=== PATIENT | female | born 2000 | race Caucasian/White ===

== ENCOUNTER → 2023-08-16 14:20 | Outpatient (BNVA) | payer OTHER, SELFPAY | PROVIDERS: Family Provider Family Medicine; Visit Provider Nurse Practitioner Women's Health | DX: Z12.4 Encounter for screening for malignant neoplasm of cervix (principal) | CPT/HCPCS: 88175 ==

== ENCOUNTER → 2023-11-07 08:30 | Outpatient (BNVA) | payer OTHER, SELFPAY | PROVIDERS: Family Provider Family Medicine; Visit Provider Nurse Practitioner Women's Health | DX: N92.6 Irregular menstruation, unspecified (principal) | CPT/HCPCS: 81025 ==

== ENCOUNTER → 2023-11-21 15:45 | Outpatient (BNVA) | payer OTHER, SELFPAY | PROVIDERS: Family Provider Family Medicine; Visit Provider Nurse Practitioner Women's Health | DX: O26.891 Other specified pregnancy related conditions, first trimester (principal); Z3A.08 8 weeks gestation of pregnancy | CPT/HCPCS: 76801 ==

== ENCOUNTER → 2023-12-07 15:00 | Outpatient (BNVA) | payer OTHER, SELFPAY | PROVIDERS: Family Provider Family Medicine; Visit Provider Nurse Practitioner Women's Health | DX: O26.91 Pregnancy related conditions, unspecified, first trimester (principal); Z34.01 Encounter for supervision of normal first pregnancy, first trimester | CPT/HCPCS: 80307; 84315; 85025; 86592; 86762; 86803; 86850; 86900; 87086; 87340; 87806 ==

== ENCOUNTER → 2024-01-02 13:20 | Outpatient (BNVA) | payer OTHER, SELFPAY | PROVIDERS: Family Provider Family Medicine; Visit Provider Obstetrics & Gynecology | DX: Z34.01 Encounter for supervision of normal first pregnancy, first trimester (principal) | CPT/HCPCS: 84315; 87491; 87591 ==

== ENCOUNTER → 2024-01-18 14:24 | Outpatient (BNVA) | payer OTHER, SELFPAY | PROVIDERS: Family Provider Family Medicine; Visit Provider Nurse Practitioner Women's Health | DX: O26.891 Other specified pregnancy related conditions, first trimester (principal); Z3A.08 8 weeks gestation of pregnancy; Z67.91 Unspecified blood type, Rh negative | CPT/HCPCS: 82105; 84315 ==

== ENCOUNTER 2024-01-20 20:48 | Emergency (ER) | payer OTHER, SELFPAY ==
[2024-01-20 20:52] VITALS: BP 109/72; PULSE 107; RESP 18; TEMP 37.1; O2SAT 100; BMI 24.1
[2024-01-20 21:49] LABS: Basophils % 0.2 %; Eosinophils # 0.1 10^3/uL (0.0-0.8); Eosinophils % 0.7 %; Hematocrit 39.6 % (36-47); Lymphocytes # 0.8 10^3/uL (0.8-4.8); Lymphocytes % 4.5 %; Mean Corpuscular HGB Conc 34.8 g/dL (30-55); Mean Corpuscular Hemoglobin 34.3 pg (27-33); Mean Corpuscular Volume 98.5 fl (85-98); Mean Platelet Volume 9.7 fL (7.4-10.4); Monocytes # 0.8 10^3/uL (0.2-0.9); Monocytes % 4.8 %; Neutrophils # 15.49 10^3/uL (1.8-7.7); Neutrophils % 89.2 %; Nucleated Red Blood Cells % 0 %; Platelet Count 258 10^3/cmm (157-399); Red Blood Count 4.02 10^6/uL (3.85-5.65); Red Cell Distribution Width 12.9 % (12.1-15.1); White Blood Count 17.38 10^3/uL (3.29-11.43)
[2024-01-20 21:59] LABS: Alanine Aminotransferase 8 U/L (0-33); Albumin Level 4.4 g/dL (3.5-5.2); Alkaline Phosphatase 59 U/L (35-105); Anion Gap 15.9 (5-19); Aspartate Amino Transferase 15 U/L (0-32); Blood Urea Nitrogen 8 mg/dL (6-20); Calcium 8.9 mg/dL (8.5-10.5); Carbon Dioxide 21 mmol/L (22-29); Chloride 102 mmol/L (98-107); Creatinine Clr Calc Pharmacy 164.2971; Globulin 2.7 g/dL (1.3-4.6); Glomerular Filtration Rate 150.3 mL/min (90-130); Glucose 115 mg/dL (65-115); Lipase 15 U/L (13-60); Osmolality Calculated 279 mOsm/kg (285-295); Potassium 3.9 mmol/L (3.5-5.1); Sodium 135 mmol/L (136-145); Total Bilirubin 0.6 mg/dL (0.15-1.2); Total Protein 7.1 g/dL (6.6-8.7)
[2024-01-20] MEDS: diphenhydrAMINE 50 mg/mL SDV 1mL IVP (22:10)
[2024-01-20] MEDS: metoclopramide 5 mg/mL SDV 2 mL 10 MG IVP (22:11)
[2024-01-20] MEDS: lactated ringers 1,000 ML 999 ML IV ×2 (22:11→23:14)
[2024-01-20 22:32] VITALS: BP 113/72; PULSE 75; RESP 16; O2SAT 100
--- NOTE | 2024-01-20 22:56 | ED_ITS ---
HPI - Nausea/Vomiting/Diarrhea 2 General: Chief complaint: Nausea/Vomiting/Diarrhea Stated complaint: siclick vomiting syndrome 16 wks preg Time Seen by Provider: 01/20/24 21:41 History of Present Illness: 23-year-old female who is 17 weeks pregn ant. She states that she had a history of cyclic vomiting syndrome as an adolescent, and her last episode was around 5 or 6 years ago. She presents with multiple episodes of vomiting today. She states that she had some diarrhea following eating [place] food last night, but that the vomiting started later, and has persisted through the day. She is having some generalized upper belly cramping. No vaginal bleeding or loss of fluid. Related Data Home Medications Medication Instructions Recorded Confirmed ascorbic acid (vitamin C) 1,000 mg 1 g PO Q6H 08/16/23 01/18/24 capsule docosahexaenoic acid 200 mg 200 mg PO DAILY 08/16/23 01/18/24 capsule ( DHA) ferrous sulfate 324 mg (65 mg 324 mg PO DAILY 08/16/23 01/18/24 iron) tablet,delayed release doxylamine succinate 25 mg tablet 25 mg PO Q6H PRN 12/07/23 01/18/24 (Unisom (doxylamine)) famotidine 20 mg tablet (Pepcid) 20 mg PO BID 12/07/23 01/18/24 pyridoxine (vitamin B6) 10 mg 10 mg PO BID 12/07/23 01/18/24 tablet Previous Rx's Medication Instructions Recorded hydroxyzine HCl 25 mg tablet 25 mg PO .HS PRN itching #30 tabs 01/18/24 metoclopramide HCl 10 mg tablet 10 mg PO Q6H #20 tabs 01/20/24 (Reglan) Allergies Allergy/AdvReac Type Severity Reaction Status Date / Time Penicillins AdvReac Mild ADR-Nausea Verified 01/20/24 20:57 PFSH ED 2 PFSH: Medical History Abdominal migraine Cyclic vomiting syndrome No pertinent past medical history neghx: htn,dm, thyroid,dvt/pe PCP: Dr. Gerber Surgical History No pertinent past surgical history Family History Denies family history of Colon cancer Ovarian cancer Prostate cancer Diabetes Heart disease Hyperlipidemia Breast cancer Hypertension Uterine cancer Thyroid disease Stroke Social History Smoking and tobacco/nicotine status: never used tobacco/nicotine Physical Exam 2 Const: COMMON NORMALS: no acute distress GENERAL APPEARANCE: cooperative; not ill appearing and not frail appearing HENMT: COMMON NORMALS: normocephalic, atraumatic and Normal external nose present HEAD & SCALP: normocephalic and atraumatic FACE & SINUS: normal facial exam and face symmetric NOSE: Normal external nose present Eye: COMMON NORMALS: Equal, round and reactive pupils present and EOMs intact bilaterally PUPIL: Yes Equal, round and reactive pupils present Neck/C-Spine: GENERAL: Yes trachea midline Chest: CHEST: Yes Symmetrical chest wall rise Resp: COMMON NORMALS: normal respiratory effort, No retractions, No use of accessory muscles and clear to auscultation bilaterally AUSCULTATION: clear to auscultation bilaterally Cardio: COMMON NORMALS: regular rate and regular rhythm RATE: regular rate RHYTHM: regular rhythm GI: COMMON NORMALS: Normal to inspection, nondistended, normoactive bowel sounds present Extremity: COMMON NORMALS: no pedal edema Neuro: [place] COMA SCALE: document GCS findings [place] coma scale eye opening: Spontaneous [place] coma scale verbal response: Orientated [place] coma scale motor response: Obey commands [place] coma scale total score: 15 S ENSORY EXAM: Yes extremities (intact) Psych: COMMON NORMALS: speech normal SPEECH: Yes normal speech Skin: COMMON NORMALS: no rashes or lesions noted GENERAL SKIN EXAM: no rashes or lesions noted Course 2 Vital Signs: Vital signs: Vital Signs Temperature 98.7 F 01/20/24 20:52 Pulse Rate 91 01/21/24 00:17 Respiratory Rate 16 01/21/24 00:17 Blood Pressure 109/59 01/21/24 00:17 Pulse Oximetry 96 01/21/24 00:17 Oxygen Delivery Me thod Room Air 01/21/24 00:17 MDM - Nausea/Vomiting/Diarrhea Medical Decision Making Feeling improved after IV Zofran and Reglan. White blood cell count is 17. Bicarbonate level is 21. Other laboratory is not remarkable. Lipase is 15. CRP is only 3. Liver enzymes are normal. She is feeling improved after 2 L of LR, nausea medications. No more vomiting. Urine drug screen is negative for marijuana. She will be allowed discharge. Liquid diet, and scheduled antiemetics for the next 24 hours at least, as needed following. She knows to return for return of symptoms. Bedside ultrasound revealed positive movement, heart rate in the 150s, and appropriate fluid level. The child measures 17 weeks 4 days by biparietal distance Lab Data 01/20/24 21:32 01/20/24 21:32 Laboratory Results WBC 17.38 10^3/uL (3.29-11.43) H 01/20/24 21: RBC 4.02 10^6/uL (3.85-5.65) 01/20/24: Hgb 13.80 g/dL (11.27-16.99) 01/20/24 21: Hct 39.6 % (36-47) 01/20/24: MCV 98.5 fl (85-98) H 01/20/24 21: MCH 34.3 pg (27-33) H 01/20/24 21: MCHC 34.8 g/dL (30-55) 01/20/24 21: RDW 12.9 % (12.1-15.1) 01/20/24: Plt Count 258 10^3/cmm (157-399) 01/20/24 21: MPV 9.7 fL (7.4-10.4) 01/20/24 21: Neut % (Auto) 89.2 % 01/20/24 21: Lymph % (Auto) 4.5 % 01/20/24 21: [place] % (Auto) 4.8 % 01/20/24 21: Eos % (Auto) 0.7 % 01/20/24: Baso % (Auto) 0.2 % 01/20/24: Neut # (Auto) 15.49 10^3/uL (1.8-7.7) H 01/20/24 21: Lymph # (Auto) 0.8 10^3/uL (0.8-4.8) 01/20/24 21: [place] # (Auto) 0.8 10^3/uL (0.2-0.9) 01/20/24 21:32 Eos # (Auto) 0.1 10^3/uL (0.0-0.8) 01/20/24 21:32 Baso # (Auto) 0.0 10^3/uL (0.0-0.1) 01/20/24 21:32 Nucleated RBC % (auto) 0 % 01/20/24 21:32 Nucleated RBCs # 0.0 /100WBC 01/20/24 21:32 Sodium 135 mmol/L (136-145) L 01/20/24 21:32 Potassium 3.9 mmol/L (3.5-5.1) 01/20/24 21:32 Chloride 102 mmol/L (98-107) 01/20/24 21:32 Carbon Dioxide 21 mmol/L (22-29) L 01/20/24 21:32 Anion Gap 15.9 (5-19) 01/20/24 21:32 BUN 8 mg/dL (6-20) 01/20/24 21:32 Creatinine 0.5 mg/dL (0.5-0.9) 01/20/24 21:32 GFR Calculation 150.3 mL/min (90-130) H 01/20/24 21:32 Glucose 115 mg/dL (65-115) 01/20/24 21:32 Calculated Osmolality 279 mOsm/kg (285-295) L 01/20/24 21:32 Calcium 8.9 mg/dL (8.5-10.5) 01/20/24 21:32 Total Bilirubin 0.6 mg/dL (0.15-1.2) 01/20/24 21:32 AST 15 U/L (0-32) 01/20/24 21:32 ALT 8 U/L (0-33) 01/20/24 21:32 Alkaline Phosphatase 59 U/L (35-105) 01/20/24 21:32 C-Reactive Protein 3.0 mg/L (0.0-4.9) 01/20/24 21:32 Total Protein 7.1 g/dL (6.6-8.7) 01/20/24 21:32 Albumin 4.4 g/dL (3.5-5.2) 01/20/24 21:32 Globulin 2.7 g/dL (1.3-4.6) 01/20/24 21:32 Lipase 15 U/L (13-60) 01/20/24 21:32 Ser , Semi-Qnt 71810.00 mIU/mL 01/20/24 21:32 Urine Color Dark yellow (Yellow) A 01/20/24 23:13 Urine Appearance Clear (CLEAR) 01/20/24 23:13 Urine pH 5.5 (5-7) 01/20/24 23:13 Ur Specific [place] 1.040 (1.005-1.030) H 01/20/24 23:13 Urine Protein 1+ (Negative) A 01/20/24 23:13 Urine Glucose (UA) Negative (Normal) 01/20/24 23:13 Urine Ketones 4+ (Negative) 01/20/24 23:13 Urine Blood Negative (Negative) 01/20/24 23:13 Urine Nitrate Negative (Negative) 01/20/24 23:13 Urine Bilirubin 1+ (Negative) H 01/20/24 23:13 Urine Urobilinogen 1.0 mg/dL (Negative) 01/20/24 23:13 Ur Leukocyte Esterase Negative (Negative) 01/20/24 23:13 Urine RBC 0-2 /hpf (0-2) 01/20/24 23:13 Urine WBC 6-10 /hpf (0-5) 01/20/24 23:13 Ur Squamous Epith Cells 11-20 /hpf (0-5) 01/20/24 23:13 Amorphous Sediment Not Reportable 01/20/24 23:13 Urine Bacteria 3+ /hpf (NONE) H 01/20/24 23:13 Hyaline Casts 11.16 /lpf 01/20/24 23:13 Urine Opiates Screen Negative ng/mL (Negative) 01/20/24 23:13 Ur Barbiturates Screen Negative ng/mL (Negative) 01/20/24 23:13 Ur Phencyclidine Scrn Negative ng/mL (Negative) 01/20/24 23:13 Ur Amphetamines Screen Negative ng/mL (Negative) 01/20/24 23:13 U Benzodiazepines Scrn Negative ng/mL (Negative) 01/20/24 23:13 Urine Cocaine Screen Negative ng/mL (Negative) 01/20/24 23:13 U Marijuana (THC) Screen Negative ng/mL (Negative) 01/20/24 23:13 No radiology studies performed this visit Discharge Plan Discharge Patient Disposition: Home Clinical Impression: Intractable nausea and vomiting Condition: Stable Prescriptions: New metoclopramide HCl [Reglan] 10 mg tablet 10 mg PO Q6H Qty: 20 0RF No Action famotidine [Pepcid] 20 mg tablet 20 mg PO BID pyridoxine (vitamin B6) 10 mg tablet 10 mg PO BID Unisom (doxylamine) 25 mg tablet 25 mg PO Q6H PRN hydroxyzine HCl 25 mg tablet 25 mg PO .HS PRN (Reason: itching) Qty: 30 3RF ferrous sulfate 324 mg (65 mg iron) tablet,delayed release (DR/EC) 324 mg PO DAILY Rx Instructions: take 2 tablets every other day ascorbic acid (vitamin C) 1,000 mg capsule 1 g PO Q6H DHA 200 mg capsule 200 mg PO DAILY Discharge Orders: Discharge ED (Routine); Ordered 01/20/24 Ordered By: Rufus Cleveland Referrals: Mike Interiano MD [Physician] - 1-3 days Jeramie Gerber MD [Primary Care Provider] - Patient Instructions: Acute Nausea and Vomiting (ED), Opioid Safety, Pain Management Activity Restrictions/Additional Instructions: Take both the ondansetron, and metoclopramide every 4 hours while awake for the next 24 hours whether you feel nauseated or not. If you are still feeling nauseated despite this, you may add 25 mg of Benadryl up to every 6 hours. Following the first 24 hours, you may take medications as needed. Follow a liquid diet for the first 24 hours, then you may add solids back and if nausea is improved. Return for fever, worsening abdominal pain, blood in the stool, vomiting despite treatment, any other concerning symptoms. Call your doctor in the morning for a follow-up. Coding Level of Care Code ED [facility] for [facility] [place]
[2024-01-20 23:30] LABS: Bilirubin Urine 1+ (Negative); Blood Urine Negative (Negative); Glucose Urine UA Negative (Normal); Ketones Urine 4+ (Negative); Leukocyte Esterase Urine Negative (Negative); Nitrate Urine Negative (Negative); Protein Urine 1+ (Negative); Urine Appearance Clear (CLEAR); Urine Color Dark Yellow (Yellow); pH Urine 5.5 (5-7)
[2024-01-20 23:36] LABS: Add Urine Microscopic? YES; Amphetamines Screen Urine Negative (Negative); Bacteria Urine 3+ /hpf; Barbiturates Screen Urine Negative (Negative); Benzodiazepines Screen Urine Negative (Negative); Cocaine Screen Urine Negative (Negative); Hyaline Casts Urine 11.16 /lpf; Opiate Screen Urine Negative (Negative); PCP Screen Urine Negative (Negative); RBC Urine 0-2 /hpf (0-2); THC Screen Urine Negative (Negative)
[2024-01-20 23:51] LABS: Add Urine Culture? No; UA Slide Review UA Slide Review Perf
[2024-01-21] MEDS: metoclopramide 5 mg/mL SDV 2 mL 10 MG IVP (00:09)
[2024-01-21] MEDS: ondansetron 2 mg/ML SDV 2 mL 4 MG IVP (00:09)
[2024-01-21 00:17] VITALS: BP 109/59; PULSE 91; RESP 16; O2SAT 96
--- NOTE | 2024-01-21 00:45 | PC.NURSE ---
Pt sent home with 1 tab of Zofran 4mg and 1 tab of Reglan 10mg per Dr Cleveland's orders.
[2024-01-21 01:03] VITALS: BP 106/61; PULSE 91; RESP 16; O2SAT 95
== END 2024-01-21 01:05 | disposition home or self-care (01) ==
PROVIDERS: Nurse Practitioner Family; Emergency Provider Emergency Medicine; PCP Family Medicine
DX: O21.9 Vomiting of pregnancy, unspecified (principal); Z3A.17 17 weeks gestation of pregnancy
CPT/HCPCS: 36415; 80053; 80306; 81001; 83690; 84702; 85025; 86140; 96361; 96374; 96375; 96376; 99284; J1200; J2405; J2765; J7120

== ENCOUNTER 2024-01-21 22:10 | Observation (INO) | payer OTHER, SELFPAY ==
[2024-01-21 22:12] VITALS: BP 118/74; PULSE 115; RESP 18; TEMP 36.8; O2SAT 100; BMI 24.1
[2024-01-21 22:31] VITALS: BP 126/83; PULSE 94; O2SAT 100
--- NOTE | 2024-01-21 22:33 | ED_ITS ---
HPI - Nausea/Vomiting/Diarrhea 2 General: Chief complaint: Nausea/Vomiting/Diarrhea Stated complaint: Vomiting 17 Weeks Preg Time Seen by Provider: 01/21/24 22:17 History of Present Illness: He presents to the ER tonight with complaints of continued nausea vomiting diarrhea. Patient was seen last night for similar episodes received a couple liters of fluid multiple doses of nausea medicine sent home with Reglan and Mario. Patient states now she has diarrhea as well as her multiple episodes of vomiting she cannot count how many of either she has had. Patient says she has cyclical vomiting syndrome and usually when this goes on she needs to be admitted for overnight for IV fluids and IV antiemetics. Patient is also approximately [address] 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 Dr. Gerber is her PCP. Related Data Home Medications Medication Instructions Recorded Confirmed ascorbic acid (vitamin C) 1,000 mg 1 g PO Q6H 08/16/23 01/18/24 capsule docosahexaenoic acid 200 mg 200 mg PO DAILY 08/16/23 01/18/24 capsule ( DHA) ferrous sulfate 324 mg (65 mg 324 mg PO DAILY 08/16/23 01/18/24 iron) tablet,delayed release doxylamine succinate 25 mg tablet 25 mg PO Q6H PRN 12/07/23 01/18/24 (Unisom (doxylamine)) famotidine 20 mg tablet (Pepcid) 20 mg PO BID 12/07/23 01/18/24 pyridoxine (vitamin B6) 10 mg 10 mg PO BID 12/07/23 01/18/24 tablet Previous Rx's Medication Instructions Recorded hydroxyzine HCl 25 mg tablet 25 mg PO .HS PRN itching #30 tabs 01/18/24 metoclopramide HCl 10 mg tablet 10 mg PO Q6H #20 tabs 01/20/24 (Reglan) Allergies Allergy/AdvReac Type Severity Reaction Status Date / Time Penicillins AdvReac Mild ADR-Nausea Verified 01/20/24 20:57 Review of Systems 2 General: Reports: 10 or more systems reviewed and unremarkable except in HPI and below PFSH ED 2 PFSH: Medical History Abdominal migraine Cyclic vomiting syndrome No pertinent past medical history neghx: htn,dm, thyroid,dvt/pe PCP: Dr. Gerber Surgical History No pertinent past surgical history Family History Denies family history of Colon cancer Ovarian cancer Prostate cancer Diabetes Heart disease Hyperlipidemia Breast cancer Hypertension Uterine cancer Thyroid disease Stroke Social History Smoking and tobacco/nicotine status: never used tobacco/nicotine Physical Exam 2 Const: COMMON NORMALS: no acute distress, average body habitus, patient oriented x3, no limitations, healthy appearing, alert and well nourished HENMT: COMMON NORMALS: normocephalic, atraumatic, hearing grossly normal bilaterally, external ears normal, Normal external nose present and moist oral mucous membranes HEAD & SCALP: normocephalic and atraumatic NOSE: Normal external nose present EXTERNAL EAR: Yes external ears normal Neck/C-Spine: COMMON NORMALS: no JVD Chest: COMMONS NORMALS: normal inspection of the chest and normal palpation of entire chest wall Resp: COMMON NORMALS: normal respiratory effort, No retractions, No use of accessory muscles and clear to auscultation bilaterally AUSCULTATION: clear to auscultation bilaterally Cardio: COMMON NORMALS: no JVD, regular rate, regular rhythm, S1 normal heart sound present, S2 normal heart sound present, No gallops present (Cardio), No clicks present (Cardio), No murmurs present (Cardio) and No rub (Cardio) R ATE: regular rate RHYTHM: regular rhythm HEART SOUNDS: S1 normal heart sound present and S2 normal heart sound present GI: COMMON NORMALS: Normal to inspection, nondistended, normoactive bowel sounds present, Soft to palpation, non-tender, No hepatosplenomegaly present and no masses PALPATION: Yes Soft to palpation and Yes No hepatosplenomegaly present Neuro: COMMON NORMALS: patient oriented x3 SENSORIUM/ORIENTATION: Yes alert Course 2 Vital Signs: Vital signs: Vital Signs Temperature 98.2 F 01/21/24 22:12 Pulse Rate 95 01/22/24 00:00 Respiratory Rate 18 01/21/24 22:12 Blood Pressure 111/71 01/21/24 23:30 Pulse Oximetry 100 01/22/24 00:00 Oxygen Delivery Me thod Room Air 01/22/24 00:00 MDM - Nausea/Vomiting/Diarrhea Medical Decision Making Patient was given 1 L bolus normal saline, 10 mg Reglan, 25 mg Benadryl, 8 mg Zofran, for her stay in ER. Lab work was obtained which was essentially unremarkable other than specific gravity being high at 1.039, white count was normal, BUN/creatinine normal, discussed these results with Dr. Underwood and the fact she was here yesterday and has a history of cyclical vomiting syndrome. We will admit the patient to obs for IV fluids. Medical Records I reviewed the patient's medical records. Lab Data I reviewed the patient's lab results. 01/21/24 22:35 01/21/24 22:35 Laboratory Results WBC 10.48 10^3/uL (3.29-11.43) 01/21/24 22:35 RBC 3.97 10^6/uL (3.85-5.65) 01/21/24 22:35 Hgb 13.60 g/dL (11.27-16.99) 01/21/24 22:35 Hct 40.0 % (36-47) 01/21/24 22:35 MCV 100.8 fl (85-98) H 01/21/24 22:35 MCH 34.3 pg (27-33) H 01/21/24 22:35 MCHC 34.0 g/dL (30-55) 01/21/24 22:35 RDW 13.0 % (12.1-15.1) 01/21/24 22:35 Plt Count 244 10^3/cmm (157-399) 01/21/24 22:35 MPV 9.7 fL (7.4-10.4) 01/21/24 22:35 Neut % (Auto) 78.8 % 01/21/24 22:35 Lymph % (Auto) 11.2 % 01/21/24 22:35 [place] % (Auto) 9.1 % 01/21/24 22:35 Eos % (Auto) 0.0 % 01/21/24 22:35 Baso % (Auto) 0.2 % 01/21/24 22:35 Neut # (Auto) 8.27 10^3/uL (1.8-7.7) H 01/21/24 22:35 Lymph # (Auto) 1.2 10^3/uL (0.8-4.8) 01/21/24 22:35 [place] # (Auto) 1.0 10^3/uL (0.2-0.9) H 01/21/24 22:35 Eos # (Auto) 0.0 10^3/uL (0.0-0.8) 01/21/24 22:35 Baso # (Auto) 0.0 10^3/uL (0.0-0.1) 01/21/24 22:35 Nucleated RBC % (auto) 0 % 01/21/24 22:35 Nucleated RBCs # 0.0 /100WBC 01/21/24 22:35 Sodium 136 mmol/L (136-145) 01/21/24 22:35 Potassium 3.7 mmol/L (3.5-5.1) 01/21/24 22:35 Chloride 102 mmol/L (98-107) 01/21/24 22:35 Carbon Dioxide 17 mmol/L (22-29) L 01/21/24 22:35 Anion Gap 20.7 (5-19) H 01/21/24 22:35 BUN 7 mg/dL (6-20) 01/21/24 22:35 Creatinine 0.5 mg/dL (0.5-0.9) 01/21/24 22:35 GFR Calculation 150.3 mL/min (90-130) H 01/21/24 22:35 Glucose 103 mg/dL (65-115) 01/21/24 22:35 Calculated Osmolality 280 mOsm/kg (285-295) L 01/21/24 22:35 Calcium 9.2 mg/dL (8.5-10.5) 01/21/24 22:35 Magnesium 1.6 mg/dL (1.7-2.3) L 01/21/24 22:35 Total Bilirubin 0.6 mg/dL (0.15-1.2) 01/21/24 22:35 AST 17 U/L (0-32) 01/21/24 22:35 ALT 13 U/L (0-33) 01/21/24 22:35 Alkaline Phosphatase 53 U/L (35-105) 01/21/24 22:35 Total Protein 7.4 g/dL (6.6-8.7) 01/21/24 22:35 Albumin 4.4 g/dL (3.5-5.2) 01/21/24 22:35 Globulin 3.0 g/dL (1.3-4.6) 01/21/24 22:35 Urine Color Dark yellow (Yellow) A 01/21/24 23:40 Urine Appearance Cloudy (CLEAR) A 01/21/24 23:40 Urine pH 5.5 (5-7) 01/21/24 23:40 Ur Specific [place] 1.039 (1.005-1.030) H 01/21/24 23:40 Urine Protein 2+ (Negative) A 01/21/24 23:40 Urine Glucose (UA) Negative (Normal) 01/21/24 23:40 Urine Ketones 4+ (Negative) 01/21/24 23:40 Urine Blood Negative (Negative) 01/21/24 23:40 Urine Nitrate Negative (Negative) 01/21/24 23:40 Urine Bilirubin Negative (Negative) 01/21/24 23:40 Urine Urobilinogen 1.0 mg/dL (Negative) 01/21/24 23:40 Ur Leukocyte Esterase Negative (Negative) 01/21/24 23:40 Urine RBC 0-2 /hpf (0-2) 01/21/24 23:40 Urine WBC 6-10 /hpf (0-5) 01/21/24 23:40 Ur Squamous Epith Cells 11-20 /hpf (0-5) 01/21/24 23:40 Amorphous Sediment Not Reportable 01/21/24 23:40 Urine Bacteria 2+ /hpf (NONE) H 01/21/24 23:40 Hyaline Casts 18.18 /lpf 01/21/24 23:40 No radiology studies performed this visit Discharge Plan Discharge Patient Disposition: Placed in Observation Clinical Impression: Dehydration, Cyclical vomiting syndrome, Currently Coding Level of Care Code ED [facility] for [facility] [place]
[2024-01-21] MEDS: sodium chloride 0.9% 1,000 ML 999 ML IV (22:44)
[2024-01-21] MEDS: diphenhydrAMINE 50 mg/mL SDV 1mL 25 MG IVP (22:45)
[2024-01-21] MEDS: metoclopramide 5 mg/mL SDV 2 mL 10 MG IVP (22:46)
[2024-01-21 22:47] VITALS: BP 117/70; PULSE 92; O2SAT 99
[2024-01-21 22:49] LABS: Basophils % 0.2 %; Lymphocytes # 1.2 10^3/uL (0.8-4.8); Lymphocytes % 11.2 %; Mean Corpuscular Hemoglobin 34.3 pg (27-33); Mean Corpuscular Volume 100.8 fl (85-98); Mean Platelet Volume 9.7 fL (7.4-10.4); Monocytes % 9.1 %; Neutrophils # 8.27 10^3/uL (1.8-7.7); Neutrophils % 78.8 %; Nucleated Red Blood Cells % 0 %; Platelet Count 244 10^3/cmm (157-399); Red Blood Count 3.97 10^6/uL (3.85-5.65); White Blood Count 10.48 10^3/uL (3.29-11.43)
[2024-01-21 23:00] LABS: Alanine Aminotransferase 13 U/L (0-33); Albumin Level 4.4 g/dL (3.5-5.2); Alkaline Phosphatase 53 U/L (35-105); Anion Gap 20.7 (5-19); Aspartate Amino Transferase 17 U/L (0-32); Blood Urea Nitrogen 7 mg/dL (6-20); Calcium 9.2 mg/dL (8.5-10.5); Carbon Dioxide 17 mmol/L (22-29); Chloride 102 mmol/L (98-107); Creatinine Clr Calc Pharmacy 164.2971; Glomerular Filtration Rate 150.3 mL/min (90-130); Glucose 103 mg/dL (65-115); Magnesium 1.6 mg/dL (1.7-2.3); Osmolality Calculated 280 mOsm/kg (285-295); Potassium 3.7 mmol/L (3.5-5.1); Sodium 136 mmol/L (136-145); Total Bilirubin 0.6 mg/dL (0.15-1.2); Total Protein 7.4 g/dL (6.6-8.7)
[2024-01-21 23:17] VITALS: BP 117/70; PULSE 92; O2SAT 99
[2024-01-21 23:30] VITALS: BP 111/71; PULSE 90; O2SAT 100
[2024-01-22] VITALS (11 sets, daily range): BP systolic 91–110; BP diastolic 55–84; PULSE 78–101; RESP 16–17; TEMP 36.7–37.1; O2SAT 97–100; BMI 24.1
[2024-01-22 00:17] LABS: Add Urine Culture? No; Add Urine Microscopic? YES; Bacteria Urine 2+ /hpf; Bilirubin Urine Negative (Negative); Blood Urine Negative (Negative); Glucose Urine UA Negative (Normal); Hyaline Casts Urine 18.18 /lpf; Ketones Urine 4+ (Negative); Leukocyte Esterase Urine Negative (Negative); Nitrate Urine Negative (Negative); Protein Urine 2+ (Negative); RBC Urine 0-2 /hpf (0-2); Specific Gravity, Urine 1.039 (1.005-1.030); UA Slide Review UA Slide Review Perf; Urine Appearance Cloudy (CLEAR); Urine Color Dark Yellow (Yellow); pH Urine 5.5 (5-7)
[2024-01-22] MEDS: ondansetron 2 mg/ML SDV 2 mL 8 MG IVP (00:36)
[2024-01-22] MEDS: sodium chloride 0.9% 1,000 ML 150 ML IV (01:00)
--- NOTE | 2024-01-22 03:02 | P.HP_ITS ---
Providers/Chief Complaint 2 Admitting Physician: Trupti Underwood MD Primary Care Provider: Jeramie Gerber MD Chief Complaint: Vomiting 17 Weeks Preg History of Present Illness Roxy Waite is a 23 year old female Medications/Allergies Home Medications Medication Instructions Recorded Confirmed Last Taken Type ascorbic acid (vitamin C) 1,000 mg 1 g PO Q6H 08/16/23 01/18/24 Unknown History capsule docosahexaenoic acid 200 mg 200 mg PO DAILY 08/16/23 01/18/24 Unknown History capsule ( DHA) ferrous sulfate 324 mg (65 mg 324 mg PO DAILY 08/16/23 01/18/24 Unknown History iron) tablet,delayed release doxylamine succinate 25 mg tablet 25 mg PO Q6H PRN 12/07/23 01/18/24 Unknown History (Unisom (doxylamine)) famotidine 20 mg tablet (Pepcid) 20 mg PO BID 12/07/23 01/18/24 Unknown History pyridoxine (vitamin B6) 10 mg 10 mg PO BID 12/07/23 01/18/24 Unknown History tablet hydroxyzine HCl 25 mg tablet 25 mg PO .HS PRN itching #30 tabs 01/18/24 01/18/24 Unknown Rx metoclopramide HCl 10 mg tablet 10 mg PO Q6H #20 tabs 01/20/24 Unknown Rx (Reglan) Allergies Allergy/AdvReac Type Severity Reaction Status Date / Time Penicillins AdvReac Mild ADR-Nausea Verified 01/20/24 20:57 PFSH Acute 2 PFSH: Medical History Abdominal migraine Cyclic vomiting syndrome No pertinent past medical history neghx: htn,dm, thyroid,dvt/pe PCP: Dr. Gerber Surgical History No pertinent past surgical history Family History Denies family history of Colon cancer Ovarian cancer Prostate cancer Diabetes Heart disease Hyperlipidemia Breast cancer Hypertension Uterine cancer Thyroid disease Stroke Social History Smoking and tobacco/nicotine status: never used tobacco/nicotine Vitals/I&O/Wt Last Vital Signs Temp 98.2 F 11/04/24 22:12 Pulse 88 01/22/24 02:52 Resp 18 01/21/24 22:12 BP 105/68 01/22/24 02:52 Pulse Ox 99 01/22/24 02:52 O2 Del Method Room Air 01/22/24 02:45 01/21/24 01/21/24 01/22/24 14:59 22:59 06:59 Intake Total 1000 / 1000 Balance 1000 / 1000 Weight last 48 hrs Weight 65.771 kg Weight 65.771 kg Data 01/21/24 22:35 01/21/24 22:35 Coding Level of Care Code Acute Code for Chg Fwd
--- NOTE | 2024-01-22 03:17 | P.EN_ITS ---
Event Note Event Note: Patient is here with hyperemesis gravidarum, dehydrated, hypomagnesemia: I will add IV fluids replenish magnesium Presented this case to on-call RESIDENTIAL SALES CONSULTANT Dr. Garcia who has accepted the patient. Patient is 17 weeks .
[2024-01-22] MEDS: dextrose 5%-lactated ringers 1,000 ML 125 ML IV ×3 (03:38→22:17)
[2024-01-22] MEDS: ondansetron 2 mg/ML SDV 2 mL 4 MG IVP ×3 (06:49→20:00)
--- NOTE | 2024-01-22 06:58 | PC.NURSE ---
doppled heart tones @ 0300 FHT 170s
[2024-01-22] MEDS: metoclopramide 5 mg/mL SDV 2 mL 10 MG IVP ×2 (08:29→16:35)
[2024-01-22] MEDS: diphenoxylate/atropine Tablet 2 TAB PO ×2 (08:29→16:35)
[2024-01-22 10:35] LABS: C.Diff PCR (Lab) NEGATIVE (Negative)
--- NOTE | 2024-01-22 13:10 | PM.OBGYHP ---
Providers/Chief Complaint Admitting Physician: Trupti Underwood MD Primary PUBLICITY DIRECTOR: Mike Interiano MD Primary Care Provider: Jeramie Gerber MD Chief Complaint: Vomiting 17 Weeks Preg HPI PUBLICITY DIRECTOR History of Present Illness Roxy Waite is a 23 year old female G1 EDC July 01, 2024 At 17 w 0 d Presented to ER c/o nausea, vomiting, diarrhea that began Saturday, January 20, 2024 after eating fast food at a pasta restaurant no fever, chills, abdominal pain no vaginal bleeding, fluid leakage no recent antibiotics usage no blood in bowel movements Medications/Allergies Home Medications Medication Instructions Recorded Confirmed Last Taken Type ascorbic acid (vitamin C) 1,000 mg 1 g PO Q6H 08/16/23 01/22/24 01/20/24 History capsule docosahexaenoic acid 200 mg 200 mg PO DAILY 08/16/23 01/22/24 01/20/24 History capsule ( DHA) ferrous sulfate 324 mg (65 mg 324 mg PO DAILY 08/16/23 01/22/24 01/20/24 History iron) tablet,delayed release doxylamine succinate 25 mg tablet 25 mg PO Q6H PRN Allergic Reaction 12/07/23 01/22/24 01/20/24 History (Unisom (doxylamine)) famotidine 20 mg tablet (Pepcid) 20 mg PO BID 12/07/23 01/18/24 01/20/24 History pyridoxine (vitamin B6) 10 mg 10 mg PO BID 12/07/23 01/22/24 01/20/24 History tablet hydroxyzine HCl 25 mg tablet 25 mg PO .HS PRN itching #30 tabs 01/18/24 01/22/24 01/20/24 Rx metoclopramide HCl 10 mg tablet 10 mg PO Q6H #20 tabs 01/20/24 01/22/24 01/20/24 Rx (Reglan) Allergies Allergy/AdvReac Type Severity Reaction Status Date / Time Penicillins AdvReac Mild ADR-Nausea Verified 01/20/24 20:57 PFSH PUBLICITY DIRECTOR PFSH: Medical History Abdominal migraine Cyclic vomiting syndrome No pertinent past medical history neghx: htn,dm, thyroid,dvt/pe PCP: Dr. Gerber Surgical History No pertinent past surgical history Family History Denies family history of Colon cancer Ovarian cancer Prostate cancer Diabetes Heart disease Hyperlipidemia Breast cancer Hypertension Uterine cancer Thyroid disease Stroke Social History Smoking and tobacco/nicotine status: never used tobacco/nicotine History History History 0 Term 0 Miscarriages/Ectopic Living Children Care LA Calculator Estimated Delivery Date Method Current WG Current Estimate 07/01/24 LMP (Certain) 17w 0d Other Estimates 07/02/24 Ultrasound #1 16w 6d Specific Issues/Plans RH NEGATIVE Vitals/I&O/Wt Last Vital Signs Temp 98.5 F 01/22/24 17:00 Pulse 80 01/22/24 17:00 Resp 17 01/22/24 17:00 BP 100/60 01/22/24 17:00 Pulse Ox 98 01/22/24 09:00 O2 Del Method Room Air 01/22/24 17:00 01/22/24 01/22/24 01/22/24 06:59 14:59 22:59 Intake Total 1395 / 1395 1033 / 1033 30 / 1063 Balance 1395 / 1395 1033 / 1033 30 / 1063 Weight last 48 hrs Weight 145 lb Weight 145 lb Weight 145 lb Physical Exam Narrative: General comfortable, in no distress; awake, alert VS normal. Afebrile Lungs: clear Cor: RRR Abd: soft, nontender FHTs normal Ext: normal Data 01/21/24 22:35 01/21/24 22:35 Results Labs OB ([facility]): Blood Type A Negative 12/07/23 Antibody Screen Negative 12/07/23 Hct 40.0 % (36-47) 01/21/24 Hgb 13.60 g/dL (11.27-16.99) 01/21/24 Rho(D) Type Rh negative 12/07/23 Plt Count 244 10^3/cmm (157-399) 01/21/24 Hep Bs Antigen Non-reactive (Nonreactive) 12/07/23 Hepatitis C Antibody Non-reactive (Nonreactive) 12/07/23 Rubella IgG Antibody 37.2 IU/mL (0.0-10.0) H 12/07/23 RPR Nonreactive (Nonreactive) 12/07/23 HIV 1&2 Ab & HIV 1 Ag Non-reactive (Non-Reactiv) 12/07/23 C.trachomatis RNA (TMA) Not detected (NOT DETECTED) 01/02/24 N.gonorrhoeae RNA (TMA) Not detected (NOT DETECTED) 01/02/24 T. vaginalis Amp RNA Not detected (NOT DETECTED) 01/02/24 Chlamydia/GC Comment See note 01/02/24 Ser , Semi-Qnt 60439.00 mIU/mL 01/20/24 HCG, Qual Positive (Negative) H 11/07/23 Urine Opiates Screen Negative ng/mL (Negative) 01/20/24 Ur Barbiturates Screen Negative ng/mL (Negative) 01/20/24 Ur Phencyclidine Scrn Negative ng/mL (Negative) 01/20/24 Ur Amphetamines Screen Negative ng/mL (Negative) 01/20/24 U Benzodiazepines Scrn Negative ng/mL (Negative) 01/20/24 Urine Cocaine Screen Negative ng/mL (Negative) 01/20/24 U Marijuana (THC) Screen Negative ng/mL (Negative) 01/20/24 Micro Urine Specimen 12/07/23 Pap Smear Interpret See note 08/16/23 A&P Assessment and plan (1) Supervision of normal first : 17 w 0 d Qualifiers: Trimester: first trimester Qualified Code(s): Z34.01 - Encounter for supervision of normal first , first trimester (2) Gastroenteritis: Nausea, vomiting, diarrhea Likely acute gastroenteritis Plan stool for C. diff, culture Rx Lomotil Rx Zofran hydration Attestations Medical Necessity Statement*: patient at 17 weeks with acute gastroenteritis Coding Level of Care Code Acute Code for Chg Fwd Diagnoses Encounter for supervision of normal first in first trimester Z34.01 Trimester: first trimester Gastroenteritis K52.9 Time Spent (min) 60
[2024-01-23] MEDS: metoclopramide 5 mg/mL SDV 2 mL 10 MG IVP (01:10)
[2024-01-23] MEDS: diphenoxylate/atropine Tablet 2 TAB PO ×2 (01:12→09:57)
[2024-01-23 02:18] VITALS: BP 89/56; PULSE 87; RESP 16; TEMP 36.9
[2024-01-23 06:31] VITALS: BP 90/57; PULSE 69; RESP 15; TEMP 37
[2024-01-23] MEDS: dextrose 5%-lactated ringers 1,000 ML 125 ML IV (06:31)
[2024-01-23 10:01] VITALS: BP 106/58; PULSE 71; RESP 17; TEMP 36.9
--- NOTE | 2024-01-23 12:35 | P.PN_ITS ---
TESTING ENGINEER Subjective 2 Subjective: Interval history: 23 y.o. G1 EDC July 01, 2024 At 17 w 1 d Presented to ER yesterday with complaints of nausea, vomiting, and diarrhea that began on January 20, 2024 after eating at a pasta restaurant no fever, chills, abdominal pain no vaginal bleeding, fluid leakage no recent antibiotics usage no blood in bowel movements was admitted for hydration patient was given anti-emetics and anti-diarrheal medication this a.m., states symptoms better no further nausea and vomiting diarrhea improved Vitals/I&O/Wt Last Vital Signs Temp 98.5 F 01/23/24 13:00 Pulse 70 01/23/24 13:00 Resp 17 01/23/24 13:00 BP 110/58 01/23/24 13:00 Pulse Ox 99 01/23/24 13:00 O2 Del Method Room Air 01/23/24 13:00 Physical Exam 2 Narrative: General comfortable, in no distress; awake, alert VS normal. Afebrile Abd: soft, nontender FHTs normal Ext: normal Data 01/21/24 22:35 01/21/24 22:35 A&P Assessment and plan (1) Supervision of normal first : 17 w 1 d Qualifiers: Trimester: first trimester Qualified Code(s): Z34.01 - Encounter for supervision of normal first , first trimester (2) Gastroenteritis: Nausea, vomiting, diarrhea Likely acute gastroenteritis Clinically improved Stool was negative for C. diff Plan discharge to home today Call or return to ER if fever, chills, nausea, vomiting, diarrhea, abdominal pain, vaginal bleeding continue Lomotil PRN continue Zofran PRN maintain adequate PO intake and hydration f/u with Dr. Interiano early next week Attestations 2 Medical Necessity Statement*: patient at 17 w 1 d with acute gastroenteritis, plan to discharge to home today. Coding Level of Care Code Acute Code for Chg Fwd Diagnoses Encounter for supervision of normal first in first trimester Z34.01 Trimester: first trimester Gastroenteritis K52.9 Time Spent (min) 20
[2024-01-23 13:00] VITALS: BP 110/58; PULSE 70; RESP 17; TEMP 36.9; O2SAT 99
== END 2024-01-23 13:12 | disposition home or self-care (01) ==
LOC: ER 01-22 00:41 → OBGYN 01-22 01:18
PROVIDERS: Admitting Provider Internal Medicine; Emergency Provider Emergency Medicine; PCP Family Medicine; Visit Provider Obstetrics & Gynecology
DX: Z34.01 Encounter for supervision of normal first pregnancy, first trimester (principal); Z3A.17 17 weeks gestation of pregnancy; K52.9 Noninfective gastroenteritis and colitis, unspecified; E86.0 Dehydration
CPT/HCPCS: 36415; 80053; 81001; 83735; 85025; 87045; 87427; 87449; 87493; 96374; 96375; 96376; 99285; G0378; J1200; J2405; J2765; J7030; J7121

== ENCOUNTER → 2024-02-13 14:15 | Outpatient (BNVA) | payer OTHER, SELFPAY | PROVIDERS: Family Provider Family Medicine; Visit Provider Obstetrics & Gynecology | DX: O26.892 Other specified pregnancy related conditions, second trimester (principal); Z3A.20 20 weeks gestation of pregnancy | CPT/HCPCS: 76805 ==

== ENCOUNTER → 2024-03-10 08:03 | Outpatient (BNVA) | payer OTHER, SELFPAY | PROVIDERS: Family Provider Family Medicine; Visit Provider Nurse Practitioner Women's Health | DX: Z34.01 Encounter for supervision of normal first pregnancy, first trimester (principal) | CPT/HCPCS: 82950; 84315 ==

== ENCOUNTER → 2024-04-11 13:45 | Outpatient (BNVA) | payer OTHER, SELFPAY | PROVIDERS: Family Provider Family Medicine; Visit Provider Obstetrics & Gynecology | DX: O26.891 Other specified pregnancy related conditions, first trimester (principal); Z3A.00 Weeks of gestation of pregnancy not specified | CPT/HCPCS: 84315; 85025 ==

== ENCOUNTER 2024-04-18 13:17 | Observation (INO) | payer OTHER, SELFPAY ==
[2024-04-18] VITALS (43 sets, daily range): BP systolic 103–114; BP diastolic 57–73; PULSE 84–115; RESP 16; TEMP 36.5–37.4; O2SAT 92–100; BMI 25.9
[2024-04-18] MEDS: lactated ringers 1,000 ML 999 ML (05:20)
[2024-04-18] MEDS: ondansetron 2 mg/ML SDV 2 mL 4 MG IVP ×5 (06:22→21:06)
[2024-04-18] MEDS: diphenoxylate/atropine Tablet 1 TAB PO ×2 (06:36→13:07)
[2024-04-18] MEDS: sodium chloride 0.9% 1,000 ML 999 ML IV (08:00)
[2024-04-18 09:40] LABS: Basophils # 0.1 10^3/uL (0.0-0.1); Basophils % 0.4 %; Eosinophils % 0.2 %; Hematocrit 24.5 % (36-47); Lymphocytes # 0.4 10^3/uL (0.8-4.8); Lymphocytes % 2.2 %; Mean Corpuscular HGB Conc 35.1 g/dL (30-55); Mean Corpuscular Hemoglobin 34.7 pg (27-33); Mean Corpuscular Volume 98.8 fl (85-98); Mean Platelet Volume 10.5 fL (7.4-10.4); Monocytes # 0.4 10^3/uL (0.2-0.9); Monocytes % 2.1 %; Neutrophils # 17.75 10^3/uL (1.8-7.7); Neutrophils % 94.4 %; Nucleated Red Blood Cells % 0 %; Platelet Count 309 10^3/cmm (157-399); Red Blood Count 2.48 10^6/uL (3.85-5.65); Red Cell Distribution Width 13.1 % (12.1-15.1); White Blood Count 18.82 10^3/uL (3.29-11.43)
[2024-04-18 10:10] LABS: Bilirubin Urine Negative (Negative); Blood Urine Negative (Negative); Glucose Urine UA 1+ (Normal); Ketones Urine 4+ (Negative); Leukocyte Esterase Urine Negative (Negative); Nitrate Urine Negative (Negative); Protein Urine 1+ (Negative); Urine Appearance Clear (CLEAR); Urine Color Dark Yellow (Yellow)
[2024-04-18 10:14] LABS: Bacteria Urine 4+ /hpf; Hyaline Casts Urine 5.77 /lpf; RBC Urine 0-2 /hpf (0-2)
[2024-04-18 10:26] LABS: Specific Gravity, Urine 1.037 (1.005-1.030)
[2024-04-18] MEDS: promethazine 25 mg Supp PR ×2 (11:00→21:07)
[2024-04-18] MEDS: dextrose 5%-lactated ringers 1,000 ML 125 ML IV ×2 (11:57→19:33)
--- NOTE | 2024-04-18 14:05 | PM.OBGYHP ---
Providers/Chief Complaint Admitting Physician: Kristofer Garcia MD Primary PLYWOOD SCARFER TENDER: Mike Interiano MD Chief Complaint: Throwing up blood HPI PLYWOOD SCARFER TENDER History of Present Illness Roxy Waite is a 24 year old female G1 EDC July 01, 2024 At 29 w 3 d + active movements Presented to L&D this morning History of cyclic vomiting syndrome diagnosed since the age of 1 c/o nausea, vomiting, and diarrhea that began yesterday evening states had continuous vomiting that resulted in small amount of blood in vomitus this morning last episode was in January, treated here with IV hydration and Zofran. Patient was admitted here for 2 days in January for that episode no fever, chills, cough, abdominal pain, vaginal bleeding or fluid leakage no dysuria no recent antibiotics usage no blood in bowel movements Present Details : 1 Para: 0 Medications/Allergies Home Medications Medication Instructions Recorded Confirmed Last Taken Type ascorbic acid (vitamin C) 1,000 mg 1 g PO Q6H 08/16/23 04/11/24 01/20/24 History capsule docosahexaenoic acid 200 mg 200 mg PO DAILY 08/16/23 04/11/24 01/20/24 History capsule ( DHA) ferrous sulfate 324 mg (65 mg 324 mg PO DAILY 08/16/23 04/11/24 01/20/24 History iron) tablet,delayed release famotidine 20 mg tablet (Pepcid) 20 mg PO BID 12/07/23 04/11/24 01/20/24 History pyridoxine (vitamin B6) 10 mg 10 mg PO BID 12/07/23 04/11/24 01/20/24 History tablet diphenhydramine HCl 25 mg capsule 25 mg PO .at bedtime PRN 02/18/24 04/11/24 Unknown History (Unisom SleepMinis) Allergies Allergy/AdvReac Type Severity Reaction Status Date / Time Penicillins AdvReac Mild ADR-Nausea Verified 04/11/24 11:45 Latex Allergy Unknown ALGY-Rash Uncoded 04/11/24 11:45 PFSH PLYWOOD SCARFER TENDER PFSH: Medical History Gastroenteritis Dehydration Abdominal migraine Cyclic vomiting syndrome No pertinent past medical history neghx: htn,dm, thyroid,dvt/pe PCP: Dr. Gerber Surgical History No pertinent past surgical history Family History Denies family history of Colon cancer Ovarian cancer Prostate cancer Diabetes Heart disease Hyperlipidemia Breast cancer Hypertension Uterine cancer Thyroid disease Stroke Social History Smoking and tobacco/nicotine status: never used tobacco/nicotine History History History 1 Term 0 Miscarriages/Ectopic Living Children Care LA Calculator Estimated Delivery Date Method Current WG Current Estimate 07/01/24 LMP (Certain) 29w 4d Other Estimates 07/02/24 Ultrasound #1 29w 3d Specific Issues/Plans RH NEGATIVE NAUSEA AND VOMITING IN : starting to feel better Vitals/I&O/Wt Last Vital Signs Temp 98.8 F 04/18/24 19:10 Pulse 88 04/18/24 19:10 BP 111/64 04/18/24 19:10 Pulse Ox 99 04/18/24 07:50 04/18/24 04/18/24 04/19/24 14:59 22:59 06:59 Intake Total 950 / 950 1000 / 1950 Balance 950 / 950 1000 / 1950 Weight last 48 hrs Weight 156 lb Physical Exam Narrative: General comfortable, in no distress; awake, alert Weight 156 lbs; 5?5? VS normal. Afebrile Abd: soft, nontender FHTs normal Ext: normal External monitor: no UCs heart tracing good variability Data 04/18/24 05:22 Results Labs OB ([facility]): Blood Type A Negative 12/07/23 Antibody Screen Negative 12/07/23 Hct 24.5 % (36-47) L 04/18/24 Hgb 8.60 g/dL (11.27-16.99) L 04/18/24 Rho(D) Type Rh negative 12/07/23 Plt Count 309 10^3/cmm (157-399) 04/18/24 Hep Bs Antigen Non-reactive (Nonreactive) 12/07/23 Hepatitis C Antibody Non-reactive (Nonreactive) 12/07/23 Rubella IgG Antibody 37.2 IU/mL (0.0-10.0) H 12/07/23 RPR Nonreactive (Nonreactive) 12/07/23 HIV 1&2 Ab & HIV 1 Ag Non-reactive (Non-Reactiv) 12/07/23 C.trachomatis RNA (TMA) Not detected (NOT DETECTED) 01/02/24 N.gonorrhoeae RNA (TMA) Not detected (NOT DETECTED) 01/02/24 T. vaginalis Amp RNA Not detected (NOT DETECTED) 01/02/24 Chlamydia/GC Comment See note 01/02/24 Glucose 1 Hr 50 gm 74 mg/dL (85-140) L 03/10/24 Ser , Semi-Qnt 66518.00 mIU/mL 01/20/24 HCG, Qual Positive (Negative) H 11/07/23 Urine Opiates Screen Negative ng/mL (Negative) 01/20/24 Ur Barbiturates Screen Negative ng/mL (Negative) 01/20/24 Ur Phencyclidine Scrn Negative ng/mL (Negative) 01/20/24 Ur Amphetamines Screen Negative ng/mL (Negative) 01/20/24 U Benzodiazepines Scrn Negative ng/mL (Negative) 01/20/24 Urine Cocaine Screen Negative ng/mL (Negative) 01/20/24 U Marijuana (THC) Screen Negative ng/mL (Negative) 01/20/24 Micro Urine Specimen 12/07/23 Pap Smear Interpret See note 08/16/23 A&P Assessment and plan (1) Currently : 29 w 3 d (2) Intractable nausea and vomiting: Patient with history of cyclic vomiting syndrome. This may be part of that syndrome or may have acute gastroenteritis on top of that will admit for observation IV fluid, IV Zofran Attestations Medical Necessity Statement*: patient at 29 w 3 d, with nausea, vomiting, and diarrhea Coding Level of Care Code Acute Code for Chg Fwd Diagnoses Currently Z34.90 Intractable nausea and vomiting R11.2 Time Spent (min) 60
[2024-04-18] MEDS: diphenhydrAMINE 50 mg/mL SDV 1mL 25 MG IVP ×2 (14:16→21:41)
[2024-04-19] MEDS: ondansetron 2 mg/ML SDV 2 mL 4 MG IVP ×6 (02:08→22:53)
[2024-04-19 03:00] VITALS: RESP 17
[2024-04-19] MEDS: dextrose 5%-lactated ringers 1,000 ML 125 ML IV ×3 (05:23→23:00)
[2024-04-19] MEDS: diphenoxylate/atropine Tablet 1 TAB PO ×2 (08:47→18:35)
[2024-04-19 08:48] VITALS: BP 104/63; PULSE 85
--- NOTE | 2024-04-19 10:25 | P.PN_ITS ---
Subjective 2 Subjective: Mrs. Waite 24-year-old female, with an estimated stational age at 29 weeks 4 days. Still with nausea vomiting diarrhea. Vitals/I&O/Wt Last Vital Signs Temp 98.8 F 04/18/24 19:10 Pulse 85 04/19/24 08:48 Resp 17 04/19/24 03:00 BP 104/63 04/19/24 08:48 Pulse Ox 99 04/18/24 07:50 04/18/24 04/19/24 04/19/24 22:59 06:59 14:59 Intake Total 950 / 950 1000 / 1950 Balance 950 / 950 1000 / 1950 Weight last 48 hrs Weight 70.76 kg Physical Exam 2 Const: COMMON NORMALS: no acute distress, patient oriented x3 and well nourished GENERAL APPEARANCE: cooperative and well kempt Chest: CHEST: Yes Symmetrical chest wall rise Resp: COMMON NORMALS: normal respiratory effort Cardio: COMMON NORMALS: regular rate and regular rhythm RATE: regular rate RHYTHM: regular rhythm GI: INSPECTION: Yes gravid abdomen PALPATION: No Tenderness to palpation present (GI) : UTERUS PALPATION: No Uterus tender Extremity: COMMON NORMALS: normal to inspection; negative for no pedal edema Neuro: COMMON NORMALS: patient oriented x3 and moves all extremities S PEECH: speech normal GAIT: Yes Normal gait present Psych: COMMON NORMALS: mental status grossly normal, Normal thought process present and speech normal APPEARANCE: Yes grossly normal and Yes well kempt ATTITUDE: Yes calm and Yes engaged ACTIVITY/MOTOR BEHAVIOR: Yes appropriate eye contact SPEECH: Yes normal speech MOOD & AFFECT: Yes euthymic mood THOUGHT PROCESS: Normal thought process present Skin: COMMON NORMALS: no rashes or lesions noted GENERAL SKIN EXAM: no rashes or lesions noted Data 04/18/24 05:22 A&P Assessment and plan (1) Currently : 29 w 3 d Qualifiers: Weeks of gestation: 29 weeks Qualified Code(s): Z3A.29 - 29 weeks gestation of (2) Intractable nausea and vomiting: Patient with history of cyclic vomiting syndrome. Refers she continue with nausea and vomiting. Admitted for observation, and IV hydration. Will continue with IV fluid, IV Zofran Plan Discharge tomorrow if improvement Attestations 2 Medical Necessity Statement*: In my professional opinion per admitting diagnosis Coding Level of Care Code Acute Code for Chg Fwd Diagnoses 29 weeks gestation of Z3A.29 Weeks of gestation: 29 weeks Intractable nausea and vomiting R11.2
[2024-04-19 12:00] VITALS: RESP 15
[2024-04-19 16:53] VITALS: BP 99/58; PULSE 71
[2024-04-19 20:00] VITALS: TEMP 36.8
[2024-04-19 22:20] VITALS: BP 106/56; PULSE 69
[2024-04-19] MEDS: diphenhydrAMINE 50 mg/mL SDV 1mL 25 MG IVP (22:53)
[2024-04-20 04:00] VITALS: TEMP 36.9
[2024-04-20] MEDS: ondansetron 2 mg/ML SDV 2 mL 4 MG IVP (04:21)
[2024-04-20] MEDS: diphenoxylate/atropine Tablet 1 TAB PO (04:28)
[2024-04-20 04:30] VITALS: BP 101/51; PULSE 74
[2024-04-20 09:21] VITALS: BP 90/52; PULSE 72
--- NOTE | 2024-04-20 13:10 | PM.OBGYDC ---
Discharge Providers UNCLAIMED PROPERTY OFFICER Date of Admission: 04/18/24 13:17 Date of Discharge: 04/20/24 Attending Provider at Admission: Kristofer Garcia MD Attending Provider at Discharge: Kristofer Garcia MD Diagnoses at Discharge Discharge Diagnosis (1) Currently : Status: Acute Qualifiers: Weeks of gestation: 29 weeks Qualified Code(s): Z3A.29 - 29 weeks gestation of (2) Intractable nausea and vomiting: Status: Acute Reason for Visit Reason for Visit: Throwing up blood Hospital Course Hospital Course Mrs. Waite 24-year-old female G1, P0 with an estimated gestational age of 29 weeks and 5 days. Admitted for intractable nausea and vomiting for IV fluid management and nausea control. She is afebrile hemodynamically stable. She is tolerating regular diet this morning. Patient advised to to continue with care as scheduled. She was advised to progress with small meals throughout the day. Physical Exam Const: COMMON NORMALS: no acute distress, average body habitus and patient oriented x3 GENERAL APPEARANCE: cooperative and well kempt HENMT: COMMON NORMALS: normocephalic and atraumatic HEAD & SCALP: normocephalic and atraumatic Neck/C-Spine: COMMON NORMALS: full ROM Chest: COMMONS NORMALS: normal inspection of the chest Resp: COMMON NORMALS: normal respiratory effort Cardio: COMMON NORMALS: regular rate and regular rhythm RATE: regular rate RHYTHM: regular rhythm GI: INSPECTION: Yes normal to inspection Neuro: COMMON NORMALS: patient oriented x3 Psych: APPEARANCE: Yes well kempt History History History 1 Term 0 Miscarriages/Ectopic Living Children Discharge Data Studies Completed and Pending Laboratory Results WBC 18.82 10^3/uL (3.29-11.43) H 04/18/24 05:22 RBC 2.48 10^6/uL (3.85-5.65) L 04/18/24 05:22 Hgb 8.60 g/dL (11.27-16.99) L 04/18/24 05:22 Hct 24.5 % (36-47) L 04/18/24 05:22 MCV 98.8 fl (85-98) H 04/18/24 05:22 MCH 34.7 pg (27-33) H 04/18/24 05:22 MCHC 35.1 g/dL (30-55) 04/18/24 05:22 RDW 13.1 % (12.1-15.1) 04/18/24 05:22 Plt Count 309 10^3/cmm (157-399) 04/18/24 05:22 MPV 10.5 fL (7.4-10.4) H 04/18/24 05:22 Neut % (Auto) 94.4 % 04/18/24 05:22 Lymph % (Auto) 2.2 % 04/18/24 05:22 Wayne % (Auto) 2.1 % 04/18/24 05:22 Eos % (Auto) 0.2 % 04/18/24 05:22 Baso % (Auto) 0.4 % 04/18/24 05:22 Neut # (Auto) 17.75 10^3/uL (1.8-7.7) H 04/18/24 05:22 Lymph # (Auto) 0.4 10^3/uL (0.8-4.8) L 04/18/24 05:22 Wayne # (Auto) 0.4 10^3/uL (0.2-0.9) 04/18/24 05:22 Eos # (Auto) 0.0 10^3/uL (0.0-0.8) 04/18/24 05:22 Baso # (Auto) 0.1 10^3/uL (0.0-0.1) 04/18/24 05:22 Nucleated RBC % (auto) 0 % 04/18/24 05:22 Nucleated RBCs # 0.0 /100WBC 04/18/24 05:22 Urine Color Dark yellow (Yellow) A 04/18/24 09:45 Urine Appearance Clear (CLEAR) 04/18/24 09:45 Urine pH 6.0 (5-7) 04/18/24 09:45 Ur Specific [place] 1.037 (1.005-1.030) H 04/18/24 09:45 Urine Protein 1+ (Negative) A 04/18/24 09:45 Urine Glucose (UA) 1+ (Normal) H 04/18/24 09:45 Urine Ketones 4+ (Negative) 04/18/24 09:45 Urine Blood Negative (Negative) 04/18/24 09:45 Urine Nitrate Negative (Negative) 04/18/24 09:45 Urine Bilirubin Negative (Negative) 04/18/24 09:45 Urine Urobilinogen 1.0 mg/dL (Negative) 04/18/24 09:45 Ur Leukocyte Esterase Negative (Negative) 04/18/24 09:45 Urine RBC 0-2 /hpf (0-2) 04/18/24 09:45 Urine WBC 6-10 /hpf (0-5) 04/18/24 09:45 Ur Squamous Epith Cells 6-10 /hpf (0-5) 04/18/24 09:45 Amorphous Sediment Not Reportable 04/18/24 09:45 Urine Bacteria 4+ /hpf (NONE) H 04/18/24 09:45 Hyaline Casts 5.77 /lpf 04/18/24 09:45 Vitals Last Vital Signs Temp 98.4 F 04/20/24 04:00 Pulse 72 04/20/24 09:21 Resp 15 04/19/24 12:00 BP 90/52 04/20/24 09:21 Pulse Ox 99 04/18/24 07:50 Results Labs OB ([facility]): Blood Type A Negative 12/07/23 Antibody Screen Negative 12/07/23 Hct 24.5 % (36-47) L 04/18/24 Hgb 8.60 g/dL (11.27-16.99) L 04/18/24 Rho(D) Type Rh negative 12/07/23 Plt Count 309 10^3/cmm (157-399) 04/18/24 Hep Bs Antigen Non-reactive (Nonreactive) 12/07/23 Hepatitis C Antibody Non-reactive (Nonreactive) 12/07/23 Rubella IgG Antibody 37.2 IU/mL (0.0-10.0) H 12/07/23 RPR Nonreactive (Nonreactive) 12/07/23 HIV 1&2 Ab & HIV 1 Ag Non-reactive (Non-Reactiv) 12/07/23 C.trachomatis RNA (TMA) Not detected (NOT DETECTED) 01/02/24 N.gonorrhoeae RNA (TMA) Not detected (NOT DETECTED) 01/02/24 T. vaginalis Amp RNA Not detected (NOT DETECTED) 01/02/24 Chlamydia/GC Comment See note 01/02/24 Glucose 1 Hr 50 gm 74 mg/dL (85-140) L 03/10/24 Ser , Semi-Qnt 83295.00 mIU/mL 01/20/24 HCG, Qual Positive (Negative) H 11/07/23 Urine Opiates Screen Negative ng/mL (Negative) 01/20/24 Ur Barbiturates Screen Negative ng/mL (Negative) 01/20/24 Ur Phencyclidine Scrn Negative ng/mL (Negative) 01/20/24 Ur Amphetamines Screen Negative ng/mL (Negative) 01/20/24 U Benzodiazepines Scrn Negative ng/mL (Negative) 01/20/24 Urine Cocaine Screen Negative ng/mL (Negative) 01/20/24 U Marijuana (THC) Screen Negative ng/mL (Negative) 01/20/24 Micro Urine Specimen 12/07/23 Pap Smear Interpret See note 08/16/23 Discharge Plan Discharge Patient Disposition: Home Condition: Stable Prescriptions: New acetaminophen 325 mg capsule 325 mg PO Q4H PRN (Reason: fever or pain) Qty: 60 0RF Continued famotidine [Pepcid] 20 mg tablet 20 mg PO BID pyridoxine (vitamin B6) 10 mg tablet 10 mg PO BID ferrous sulfate 324 mg (65 mg iron) tablet,delayed release (DR/EC) 324 mg PO DAILY Rx Instructions: take 2 tablets every other day ascorbic acid (vitamin C) 1,000 mg capsule 1 g PO Q6H DHA 200 mg capsule 200 mg PO DAILY diphenhydramine HCl [Unisom SleepMinis] 25 mg capsule 25 mg PO .at bedtime PRN RhoGAM Ultra-Filtered PLUS 1,500 unit (300 mcg) syringe 300 mcg IM ONCE Qty: 1 0RF Discharge Orders: Discharge Order (Routine); Ordered 04/20/24 Ordered By: Mike Interiano Referrals: Mike Interiano MD [Physician] - (As scheduled ) Discharge Diet: GI Soft Discharge Activity: Limit activity as instructed Patient Instructions: Opioid Safety Activity Restrictions/Additional Instructions: 1. Please call [facility] on next working day to make your visit appointment as scheduled. 2. Please stay home until you come back to the clinic on first post-hospatilization check up. 3. Please follow instructions on your medications CAREFULLY. 4. If you have abdominal incision, do not cover it unless dressing is necessary because of drainage. OK to shower, but avoid bath. Leave steri-strips until they fall off. If they are still on one week after surgery, you may remove them. 5. If you had vaginal surgery or vaginal repair, Dr. Interiano may instruct you to take SITZ bath. 6. Yellow, blood tinged odorous vaginal discharge is usually normal after hysterectomy or vaginal surgeries. 7. No SEXUAL INTERCOURSE, tampons, or douches until you are completely released from care. 8. Avoid constipation by eating right and maybe using some Metamucil or Milk of Magnesia. 9. All prescription refills are given during the working hours. Please do no wait till it runs out. Call the clinic at [phone] before your medication runs out. The clinic will get in touch with your doctor to prescribe medications if necessary. 10. Please remain within 40 mile radius from our hospital because emergencies do happen now and then during the post-operative period. 11. If you have stairs at home, take one step at a time slowly and minimize the number of trips. It helps to stay in one floor for the next few days. No lifting except what you can lift by one hand until you are released from the post-operative care. 12. Driving is discouraged until you are well healed. It may be 3-4 weeks before you feel strong enough to drive. You should be able to turn and look through the rear window without pain and you should be able to push the brake pedal very hard without pain before you drive. No fast rules, but SAFETY should be your primary concern. DO NOT drive if you are on sedating medications such as narcotics. 13. Call the clinic (during working hours) to make urgent appointment or go to the Emergency room, if any of the following occurs: i. Vaginal bleeding becomes heavy, more than a period. ii. Incision becomes red and sore, or drains pus. iii. Your TEMPERATURE is over 100.4F or you have chill. iv. IV site becomes red and swollen (a little ``knot?? is usually OK) v. Persistent nausea and vomiting vi. Persistent constipation or diarrhea vii. Rash or allergic reaction to medications. Discharge Attestations UNCLAIMED PROPERTY OFFICER Time Spent in Discharge Care*: greater than 30 min Coding Level of Care Code Acute Code for Chg Fwd Diagnoses 29 weeks gestation of Z3A.29 Weeks of gestation: 29 weeks Intractable nausea and vomiting R11.2
[2024-04-20 13:36] VITALS: BP 101/57; PULSE 65
[2024-04-20 14:20] VITALS: BP 101/57; PULSE 65; RESP 16; TEMP 36.6
== END 2024-04-20 14:20 | disposition home or self-care (01) ==
LOC: OPOB 13:18 → OBGYN 13:18
PROVIDERS: Admitting Provider Obstetrics & Gynecology; Family Provider Family Medicine; Visit Provider Obstetrics & Gynecology
DX: O21.2 Late vomiting of pregnancy (principal); O26.893 Other specified pregnancy related conditions, third trimester; Z67.11 Type A blood, Rh negative; Z3A.29 29 weeks gestation of pregnancy; Z79.899 Other long term (current) drug therapy; Z88.2 Allergy status to sulfonamides; Z91.040 Latex allergy status
CPT/HCPCS: 59025; 81001; 85025; 96374; 96376; 99211; G0378; J1200; J2405; J7030; J7120; J7121; J8498

== ENCOUNTER → 2024-04-21 14:28 | Outpatient (BNVA) | payer OTHER, SELFPAY | PROVIDERS: Family Provider Family Medicine; Visit Provider Obstetrics & Gynecology | DX: Z34.90 Encounter for supervision of normal pregnancy, unspecified, unspecified trimester (principal) | CPT/HCPCS: 84315 ==

== ENCOUNTER → 2024-05-05 14:22 | Outpatient (BNVA) | payer OTHER, SELFPAY | PROVIDERS: Family Provider Family Medicine; Visit Provider Obstetrics & Gynecology | DX: Z34.90 Encounter for supervision of normal pregnancy, unspecified, unspecified trimester (principal) | CPT/HCPCS: 84315 ==

== ENCOUNTER → 2024-05-14 07:52 | Outpatient (BNVA) | payer OTHER, SELFPAY | PROVIDERS: Family Provider Family Medicine; Visit Provider Obstetrics & Gynecology | DX: O26.843 Uterine size-date discrepancy, third trimester (principal); Z3A.33 33 weeks gestation of pregnancy | CPT/HCPCS: 76816 ==

== ENCOUNTER → 2024-05-20 14:09 | Outpatient (BNVA) | payer OTHER, SELFPAY | PROVIDERS: Family Provider Family Medicine; Visit Provider Nurse Practitioner Women's Health | DX: Z34.03 Encounter for supervision of normal first pregnancy, third trimester (principal) | CPT/HCPCS: 80053; 82542; 84315; 85025 ==

== ENCOUNTER → 2024-06-05 14:28 | Outpatient (BNVA) | payer OTHER, SELFPAY | PROVIDERS: Family Provider Family Medicine; Visit Provider Obstetrics & Gynecology | DX: Z34.90 Encounter for supervision of normal pregnancy, unspecified, unspecified trimester (principal); Z34.01 Encounter for supervision of normal first pregnancy, first trimester | CPT/HCPCS: 84315; 87081 ==

== ENCOUNTER → 2024-06-12 07:54 | Outpatient (BNVA) | payer OTHER, SELFPAY | PROVIDERS: Family Provider Family Medicine; Visit Provider Nurse Practitioner Women's Health | DX: O26.893 Other specified pregnancy related conditions, third trimester (principal); Z3A.37 37 weeks gestation of pregnancy | CPT/HCPCS: 84315 ==

== ENCOUNTER → 2024-06-17 08:46 | Outpatient (BNVA) | payer OTHER, SELFPAY | PROVIDERS: Family Provider Family Medicine; Visit Provider Nurse Practitioner Women's Health | DX: Z36.9 Encounter for antenatal screening, unspecified (principal) | CPT/HCPCS: 76816 ==

== ENCOUNTER 2024-06-19 15:45 | Outpatient (CLI) | payer OTHER, SELFPAY ==
[2024-06-19 15:45] VITALS: RESP 17; BMI 28.4
[2024-06-19 15:59] VITALS: BP 127/78; PULSE 77
[2024-06-19 16:14] VITALS: BP 106/68; PULSE 88
[2024-06-19 16:30] VITALS: BP 106/68; PULSE 88; RESP 16; O2SAT 98
[2024-06-19 16:37] LABS: Nitrazine Paper, PH Negative
== END 2024-06-19 16:30 | disposition home or self-care (01) ==
LOC: OPOB 15:45 → OBGYN 15:46
PROVIDERS: Family Provider Family Medicine; Visit Provider Obstetrics & Gynecology
DX: O26.899 Other specified pregnancy related conditions, unspecified trimester (principal); Z3A.00 Weeks of gestation of pregnancy not specified; N89.8 Other specified noninflammatory disorders of vagina
CPT/HCPCS: 59025; 83986; 84315; 99211

== ENCOUNTER 2024-06-24 10:49 | Inpatient (IN) | payer OTHER, SELFPAY ==
--- NOTE | 2024-06-23 10:17 | ANES.PREANE2 ---
Pre-Anesthetic Assessment Height/Weight: Height 5 ft 5 in Preop Diagnosis: IUP Operation Date: 06/24/24 12:30 Proposed Procedures p Section 86677, O32.1xx0(Not Applicable) - Kristofer Garcia MD Was Beta Juan taken within 24 hours: N/A Was Clonidine taken within 24 hours: N/A Social No alcohol and No tobacco Exam alert, oriented x 3, clear to auscultation bilaterally and regular rate & rhythm Airway Submandibular: within normal limits Cervical ROM: within normal limits Mallampati: Class I Dentition: full Anesthetic Plan ASA status: 2 Anesthesia: Regional (specify below) Other: G1, P0 with planned for breech presentation GERD during , controlled with Pepcid Chronic anemia noted Patient also has cyclic vomiting syndrome at baseline Denies any cardiac or pulmonary issues Labs reviewed and acceptable for procedure today Plan for routine with spinal Medications/Allergies Home Medications ?Medication ?Instructions ?Recorded ?Confirmed ?Last Taken ?Type ascorbic acid (vitamin C) 1,000 mg 1 g PO Q6H 08/16/23 06/19/24 01/20/24 History capsule docosahexaenoic acid 200 mg 200 mg PO DAILY 08/16/23 06/19/24 01/20/24 History capsule ( DHA) ferrous sulfate 324 mg (65 mg 324 mg PO DAILY 08/16/23 06/19/24 01/20/24 History iron) tablet,delayed release famotidine 20 mg tablet (Pepcid) 20 mg PO BID 12/07/23 06/19/24 01/20/24 History pyridoxine (vitamin B6) 10 mg 10 mg PO BID 12/07/23 06/19/24 01/20/24 History tablet diphenhydramine HCl 25 mg capsule 25 mg PO .at bedtime PRN Sleep 02/18/24 06/19/24 Unknown History (Unisom SleepMinis) Allergies Allergy/AdvReac Type Severity Reaction Status Date / Time Penicillins AdvReac Mild ADR-Nausea Verified 06/19/24 07:30 Latex Allergy Unknown ALGY-Rash Uncoded 06/19/24 07:30 PFSH Anesthesia Medical History Dehydration Abdominal migraine Cyclic vomiting syndrome No pertinent past medical history neghx: htn,dm, thyroid,dvt/pe PCP: Dr. Gerber Surgical History No pertinent past surgical history Family History Denies family history of Colon cancer Ovarian cancer Prostate cancer Diabetes Heart disease Hyperlipidemia Breast cancer Hypertension Uterine cancer Thyroid disease Stroke Social History Smoking and tobacco/nicotine status: never used tobacco/nicotine Data Anesthesia 06/24/24 11:25 Cardiac Studies: No Data to Display
[2024-06-24] VITALS (16 sets, daily range): BP systolic 107–133; BP diastolic 37–76; PULSE 79–100; RESP 15–16; TEMP 36.4–37; O2SAT 98–100; BMI 27.6
--- NOTE | 2024-06-24 11:05 | PM.OBGYHP ---
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 History of Present Illness Roxy Waite is a 24 year old female G1 EDC July 01, 2024 At 39 w 0 d No complications Admitted for for persistent breech presentation No c/o + active movements Present Details : 1 Para: 0 Labs Rubella: Immune RPR: Negative GBS: Negative Specific History Indications for Section: Malpresentation Medications/Allergies Home Medications ?Medication ?Instructions ?Recorded ?Confirmed ?Last Taken ?Type ascorbic acid (vitamin C) 1,000 mg 1 g PO Q6H 08/16/23 06/24/24 06/23/24 History capsule docosahexaenoic acid 200 mg 200 mg PO DAILY 08/16/23 06/24/24 06/23/24 History capsule ( DHA) ferrous sulfate 324 mg (65 mg 324 mg PO DAILY 08/16/23 06/24/24 06/23/24 History iron) tablet,delayed release famotidine 20 mg tablet (Pepcid) 20 mg PO BID 12/07/23 06/24/24 06/23/24 History pyridoxine (vitamin B6) 10 mg 10 mg PO BID 12/07/23 06/24/24 06/23/24 History tablet Allergies Allergy/AdvReac Type Severity Reaction Status Date / Time Penicillins AdvReac Mild ADR-Nausea Verified 06/24/24 18:29 Latex Allergy Unknown ALGY-Rash Uncoded 06/24/24 18:29 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333 Output Total 1500 / 1500 865 / 2365 Balance 2007.333 / 2007.333 -865 / 1143.333 Weight last 48 hrs Weight 166 lb Physical Exam Narrative: General comfortable, in no distress; awake, alert Weight 160 lbs; 5?5? VS normal. Afebrile Lungs: clear Cor: RRR Abd: soft, nontender Bedside sono: breech Ext: normal External monitor: no UCs heart tracing good variability, + accelerations Urinary Catheter Management: Haji Latex Free: Cath Placed During This Visit: yes, but has since been removed by the nurse Reason for Continuing Indwelling Catheter: Decision to DC Catheter Urinary Catheter Date of Insertion: 06/24/24 Urinary Catheter Time of Insertion: 13:19 Date Urinary Catheter Removed: 06/25/24 Time Urinary Catheter Discontinued: 01:15 Data 06/25/24 02:06 Results Labs OB ([facility]): Obstetrics US 06/17/24 Blood Type A Negative 06/24/24 Antibody Screen Positive 06/24/24 Hct 30.9 % (36-47) L 06/25/24 Hgb 10.60 g/dL (11.27-16.99) L 06/25/24 Rho(D) Type Rh negative 06/24/24 Plt Count 166 10^3/cmm (157-399) 06/25/24 Hep Bs Antigen Non-reactive (Nonreactive) 12/07/23 Hepatitis C Antibody Non-reactive (Nonreactive) 12/07/23 Rubella IgG Antibody 37.2 IU/mL (0.0-10.0) H 12/07/23 RPR Nonreactive (Nonreactive) 12/07/23 HIV 1&2 Ab & HIV 1 Ag Non-reactive (Non-Reactiv) 12/07/23 C.trachomatis RNA (TMA) Not detected (NOT DETECTED) 01/02/24 N.gonorrhoeae RNA (TMA) Not detected (NOT DETECTED) 01/02/24 T. vaginalis Amp RNA Not detected (NOT DETECTED) 01/02/24 Chlamydia/GC Comment See note 01/02/24 Glucose 1 Hr 50 gm 74 mg/dL (85-140) L 03/10/24 Ser , Semi-Qnt 30499.00 mIU/mL 01/20/24 HCG, Qual Positive (Negative) H 11/07/23 Urine Opiates Screen Negative ng/mL (Negative) 01/20/24 Ur Barbiturates Screen Negative ng/mL (Negative) 01/20/24 Ur Phencyclidine Scrn Negative ng/mL (Negative) 01/20/24 Ur Amphetamines Screen Negative ng/mL (Negative) 01/20/24 U Benzodiazepines Scrn Negative ng/mL (Negative) 01/20/24 Urine Cocaine Screen Negative ng/mL (Negative) 01/20/24 U Marijuana (THC) Screen Negative ng/mL (Negative) 01/20/24 Micro Urine Specimen 12/07/23 Pap Smear Interpret See note 08/16/23 A&P Assessment and plan (1) Breech position of fetus: 39 w 0 d Persistent breech presentation Plan for delivery Procedure and risks explained Risks include, but not limited to, infection; bleeding; injury to internal organs; anesthesia; Blood transfusions Patient understands and wants to proceed PDMP PDMP Reviewed: Not Reviewed Attestations Medical Necessity Statement*: patient at 39 weeks, admitted for for persistent breech presentation Coding Level of Care Code Acute Code for Chg Fwd Diagnoses Breech position of fetus
[2024-06-24 11:37] LABS: Basophils % 0.4 %; Eosinophils # 0.4 10^3/uL (0.0-0.8); Eosinophils % 3.4 %; Hematocrit 37.3 % (36-47); Lymphocytes # 1.7 10^3/uL (0.8-4.8); Lymphocytes % 14.7 %; Mean Corpuscular HGB Conc 34.6 g/dL (30-55); Mean Corpuscular Hemoglobin 33.7 pg (27-33); Mean Corpuscular Volume 97.4 fl (85-98); Monocytes % 8.7 %; Neutrophils # 8.14 10^3/uL (1.8-7.7); Neutrophils % 72.2 %; Nucleated Red Blood Cells % 0 %; Platelet Count 220 10^3/cmm (157-399); Red Blood Count 3.83 10^6/uL (3.85-5.65); Red Cell Distribution Width 12.8 % (12.1-15.1); White Blood Count 11.26 10^3/uL (3.29-11.43)
[2024-06-24] MEDS: metoclopramide 5 mg/mL SDV 2 mL 10 MG IVP (12:42)
[2024-06-24] MEDS: famotidine 20 mg/2 mL INJ IVP (12:42)
--- NOTE | 2024-06-24 14:05 | PM.OP ---
Operative Report Date of procedure: June 24, 2024 Pre-op diagnosis: 39 wks gestation Persistent breech Post-op diagnosis: same Post-op findings: clear amniotic fluid fetus with breech presentation normal uterus, tubes, and ovaries Procedure done: primary low-transverse Implants: none Specimens removed/disposition: placenta and cord, discarded Surgeon: Kristofer Garcia MD Anesthesia: Spinal Estimated blood loss (mL): 500 Complications: none Findings: clear amniotic fluid fetus with breech presentation normal uterus, tubes, and ovaries Condition: stable Disposition: floor Brief History: 24 y.o. at 39 wks admitted for for persistent breech presentation Procedure: The patient was taken to the operating room and placed supine in the left lateral tilt position. Spinal anesthesia and a foster catheter were already in place. Time-out verification was carried out. The abdomen was prepped and draped in the usual sterile fashion. A Pfannenstiel incision was made and carried down through skin and subcutaneous tissue and fascia. The fascial incision was extended laterally with James scissors. The fascia was from the underlying rectus muscles. The rectus muscles were split in the midline. The peritoneum was entered bluntly avoiding underlying organs. A bladder flap was created. An Mike-O retractor was placed. A low-transverse uterine incision was made and extended laterally and bluntly avoiding the uterine vessels. Clear amniotic fluid was encountered. The baby was delivered in breech presentation atraumatically. The cord was clamped and cut and the baby was handed to pediatric staff. Cord blood was obtained. The placenta was manually removed intact. The uterine cavity was bluntly curetted with wet laps. The uterine incision was then closed with a continuous interlocking stitch of O-chromic. Adequate hemostasis was seen. Inspection of the uterine incision again showed good hemostasis. The fascia was then closed with a continuous stitch of O-Vicryl. Additional interrupted stitches of O-Vicryl were used for fascial closure. The subcutaneous tissue was irrigated and inspected for hemostasis. The skin was then closed with Insorb francy. Postoperative condition: stable EBL: 500 cc Complications: none Sponge and instruments counts correct x two
[2024-06-24] MEDS: ketorolac 30 mg/mL INJ IVP ×2 (15:31→21:10)
[2024-06-24] MEDS: dextrose 5%-lactated ringers 1,000 ML 125 ML IV (15:32)
[2024-06-24] MEDS: docusate sodium 100 mg Capsule PO (21:11)
[2024-06-25] VITALS (7 sets, daily range): BP systolic 99–125; BP diastolic 54–77; PULSE 72–108; RESP 16; TEMP 35.7–36.9; O2SAT 99
[2024-06-25 02:19] LABS: Hematocrit 30.9 % (36-47); Mean Corpuscular HGB Conc 34.3 g/dL (30-55); Mean Platelet Volume 9.7 fL (7.4-10.4); Platelet Count 166 10^3/cmm (157-399); Red Blood Count 3.12 10^6/uL (3.85-5.65); Red Cell Distribution Width 12.9 % (12.1-15.1)
[2024-06-25] MEDS: PRENATAL VIT NO.130/IRON/FOLIC 1 EACH TABLET PO (10:27)
[2024-06-25] MEDS: ibuprofen 800 mg tablet PO ×3 (10:27→21:20)
[2024-06-25] MEDS: docusate sodium 100 mg Capsule PO ×2 (10:27→21:20)
[2024-06-25] MEDS: ferrous sulfate EC 325 mg Tablet PO ×2 (10:28→21:20)
--- NOTE | 2024-06-25 10:43 | PC.NURSE ---
PATIENT UP TO SHOWER, REMOVED DRESSING AND THERE WAS SOME DRAINAGE NOTED AND ABD PAD PLACED OVER INCISION AND TOLD HER THAT WAS NORMAL, BUT IF IT GOT TO BE MORE TO LET US KNOW. TOLD HER THAT WAS NORMAL AT THIS POINT IN TIME.
--- NOTE | 2024-06-25 13:05 | PM.OBGYPN ---
COUNTY HOME DEMONSTRATOR Subjective Subjective: Interval history: c/o mild incisional pain no bleeding, nausea, vomiting tolerating PO well caring for infant without any difficulties Labor: Amniotic Membrane Status: Intact Monitor Mode: Palpation Contraction Pattern: Regular Vitals/I&O/Wt Last Vital Signs Temp 97.3 F L 06/26/24 14:55 Pulse 85 06/26/24 14:55 Resp 16 06/26/24 14:55 BP 117/67 06/26/24 14:55 Pulse Ox 98 06/26/24 14:55 O2 Del Method Room Air 06/25/24 21:20 Physical Exam Narrative: afebrile, VS normal comfortable, awake, alert Lungs: clear Cor: RRR Abd: soft, nondistended, nontender fundus firm wound clean and dry Ext: normal Urinary Catheter Management: Haji Latex Free: Cath Placed During This Visit: yes, but has since been removed by the nurse Reason for Continuing Indwelling Catheter: Decision to DC Catheter Urinary Catheter Date of Insertion: 06/24/24 Urinary Catheter Time of Insertion: 13:19 Date Urinary Catheter Removed: 06/25/24 Time Urinary Catheter Discontinued: 01:15 Data 06/25/24 02:06 A&P Assessment and plan (1) S/P : POD #1 primary LTCS for breech fetus doing well continue postop care ambulate PDMP PDMP Reviewed: Last Reviewed 06/26/24 13:48 EDT by Kristofer Garcia MD Attestations Medical Necessity Statement*: patient s/p , for postop care Coding Level of Care Code Acute Code for Chg Fwd Diagnoses S/P Z98.891
[2024-06-25] MEDS: HYDROcodone-acetaminophen 5-325 mg Tablet PO (19:22)
[2024-06-26] MEDS: hyDROXYzine 25 mg Capsule 50 MG PO (02:18)
[2024-06-26 04:48] VITALS: BP 108/60; PULSE 80; TEMP 36.3
[2024-06-26] MEDS: HYDROcodone-acetaminophen 5-325 mg Tablet PO ×2 (04:51→14:02)
[2024-06-26] MEDS: ibuprofen 800 mg tablet PO (09:03)
[2024-06-26] MEDS: docusate sodium 100 mg Capsule PO (09:03)
[2024-06-26] MEDS: ferrous sulfate EC 325 mg Tablet PO (09:03)
[2024-06-26] MEDS: PRENATAL VIT NO.130/IRON/FOLIC 1 EACH TABLET PO (09:03)
[2024-06-26 09:49] VITALS: BP 108/68; PULSE 97; TEMP 36.4
--- NOTE | 2024-06-26 14:15 | PM.OBGYDC ---
Discharge Providers DEFENSIVE SECONDARY COACH Date of Admission: 06/24/24 10:49 Date of Discharge: 06/26/24 Attending Provider at Admission: Kristofer Garcia MD Attending Provider at Discharge: Kristofer Garcia MD Consults: none Primary DEFENSIVE SECONDARY COACH: Kristofer Garcia MD Primary Care Provider: Jeramie Gerber MD Diagnoses at Discharge Discharge Diagnosis (1) S/P : Details from hospital stay: 24 y.o. G1 at 39 w 0 d no complications fetus has been persistently in breech presentation admitted for for breech fetus patient underwent primary low-transverse with delivery of a vigorous male without any complications patient did well postoperatively, had an uneventful postop course She was discharged to home on the second postoperative day Status: Acute Reason for Visit Reason for Visit: O32.1XX0 Brief History: 24 y.o. G1 at 39 w 0 d no complications fetus has been persistently in breech presentation admitted for for breech fetus Hospital Course Hospital Course 24 y.o. G1 at 39 w 0 d no complications fetus has been persistently in breech presentation admitted for for breech fetus patient underwent primary low-transverse with delivery of a vigorous male infant without any complications patient did well postoperatively, had an uneventful postop course She was discharged to home on the second postoperative day Information Peripartum Data: Delivery Method: complications: none Physical Exam Narrative: comfortable, awake, alert afebrile, VS normal Lungs: clear Cor: RRR Abd: soft, nontender wound clean and dry Ext: normal Urinary Catheter Management: Haji Latex Free: Cath Placed During This Visit: yes, but has since been removed by the nurse Reason for Continuing Indwelling Catheter: Decision to DC Catheter Urinary Catheter Date of Insertion: 06/24/24 Urinary Catheter Time of Insertion: 13:19 Date Urinary Catheter Removed: 06/25/24 Time Urinary Catheter Discontinued: 01:15 History History History 1 Term 0 Miscarriages/Ectopic Living Children Discharge Data Studies Completed and Pending Laboratory Results WBC 12.80 10^3/uL (3.29-11.43) H 06/25/24 02:06 RBC 3.12 10^6/uL (3.85-5.65) L 06/25/24 02:06 Hgb 10.60 g/dL (11.27-16.99) L 06/25/24 02:06 Hct 30.9 % (36-47) L 06/25/24 02:06 MCV 99.0 fl (85-98) H 06/25/24 02:06 MCH 34.0 pg (27-33) H 06/25/24 02:06 MCHC 34.3 g/dL (30-55) 06/25/24 02:06 RDW 12.9 % (12.1-15.1) 06/25/24 02:06 Plt Count 166 10^3/cmm (157-399) 06/25/24 02:06 MPV 9.7 fL (7.4-10.4) 06/25/24 02:06 Neut % (Auto) 72.2 % 06/24/24 11:25 Lymph % (Auto) 14.7 % 06/24/24 11:25 Dougherty % (Auto) 8.7 % 06/24/24 11:25 Eos % (Auto) 3.4 % 06/24/24 11:25 Baso % (Auto) 0.4 % 06/24/24 11:25 Neut # (Auto) 8.14 10^3/uL (1.8-7.7) H 06/24/24 11:25 Lymph # (Auto) 1.7 10^3/uL (0.8-4.8) 06/24/24 11:25 Dougherty # (Auto) 1.0 10^3/uL (0.2-0.9) H 06/24/24 11:25 Eos # (Auto) 0.4 10^3/uL (0.0-0.8) 06/24/24 11:25 Baso # (Auto) 0.0 10^3/uL (0.0-0.1) 06/24/24 11:25 Nucleated RBC % (auto) 0 % 06/24/24 11:25 Nucleated RBCs # 0.0 /100WBC 06/24/24 11:25 Blood Type A Negative 06/24/24 11:36 Rho(D) Type Rh negative 06/24/24 11:36 Antibody Screen Positive 06/24/24 11:36 Antibody Identification Anti-D 06/24/24 11:36 Screen Negative (Negative) 06/25/24 02:06 Procedures Performed primary low-transverse Vitals Last Vital Signs Temp 97.3 F L 06/26/24 14:55 Pulse 85 06/26/24 14:55 Resp 16 06/26/24 14:55 BP 117/67 06/26/24 14:55 Pulse Ox 98 06/26/24 14:55 O2 Del Method Room Air 06/25/24 21:20 Results Labs OB ([facility]): Obstetrics US 06/17/24 Blood Type A Negative 06/24/24 Antibody Screen Positive 06/24/24 Hct 30.9 % (36-47) L 06/25/24 Hgb 10.60 g/dL (11.27-16.99) L 06/25/24 Rho(D) Type Rh negative 06/24/24 Plt Count 166 10^3/cmm (157-399) 06/25/24 Hep Bs Antigen Non-reactive (Nonreactive) 12/07/23 Hepatitis C Antibody Non-reactive (Nonreactive) 12/07/23 Rubella IgG Antibody 37.2 IU/mL (0.0-10.0) H 12/07/23 RPR Nonreactive (Nonreactive) 12/07/23 HIV 1&2 Ab & HIV 1 Ag Non-reactive (Non-Reactiv) 12/07/23 C.trachomatis RNA (TMA) Not detected (NOT DETECTED) 01/02/24 N.gonorrhoeae RNA (TMA) Not detected (NOT DETECTED) 01/02/24 T. vaginalis Amp RNA Not detected (NOT DETECTED) 01/02/24 Chlamydia/GC Comment See note 01/02/24 Glucose 1 Hr 50 gm 74 mg/dL (85-140) L 03/10/24 Ser , Semi-Qnt 78059.00 mIU/mL 01/20/24 HCG, Qual Positive (Negative) H 11/07/23 Urine Opiates Screen Negative ng/mL (Negative) 01/20/24 Ur Barbiturates Screen Negative ng/mL (Negative) 01/20/24 Ur Phencyclidine Scrn Negative ng/mL (Negative) 01/20/24 Ur Amphetamines Screen Negative ng/mL (Negative) 01/20/24 U Benzodiazepines Scrn Negative ng/mL (Negative) 01/20/24 Urine Cocaine Screen Negative ng/mL (Negative) 01/20/24 U Marijuana (THC) Screen Negative ng/mL (Negative) 01/20/24 Micro Urine Specimen 12/07/23 Pap Smear Interpret See note 08/16/23 Discharge Plan Discharge Patient Disposition: Home Condition: Stable Prescriptions: New oxycodone-acetaminophen [Percocet] 5-325 mg tablet 1 tab PO BID PRN (Reason: pain) Qty: 20 0RF Continued famotidine [Pepcid] 20 mg tablet 20 mg PO BID pyridoxine (vitamin B6) 10 mg tablet 10 mg PO BID ferrous sulfate 324 mg (65 mg iron) tablet,delayed release (DR/EC) 324 mg PO DAILY Rx Instructions: take 2 tablets every other day ascorbic acid (vitamin C) 1,000 mg capsule 1 g PO Q6H DHA 200 mg capsule 200 mg PO DAILY Discharge Orders: Discharge Order (Routine); Ordered 06/26/24 Ordered By: Kristofer Garcia Referrals: Kristofer Garcia MD [Physician] - 07/02/24 8:00 am (6 week post apt scheduled for 08/04 at 0845am) Discharge Diet: Usual diet Discharge Activity: Increase activity as tolerated Patient Instructions: Depression (DC), Opioid Safety (DC), Preeclampsia and Eclampsia After Delivery (GEN), Hemorrhage (DC), OB [facility], OB Discharge Report, OB Food/Drug Interaction Guide, Opioid Safety, OB Home Care, Abnormal Bleeding Discharge Attestations DEFENSIVE SECONDARY COACH Time Spent in Discharge Care*: less than 30 min Coding Level of Care Code Acute Code for Chg Fwd Diagnoses S/P Z98.891
[2024-06-26 14:23] VITALS: BP 117/67; PULSE 85; TEMP 36.3
[2024-06-26 14:55] VITALS: BP 117/67; PULSE 85; RESP 16; TEMP 36.3; O2SAT 98
== END 2024-06-26 15:15 | disposition home or self-care (01) | DRG 788 ==
PROVIDERS: Admitting Provider Obstetrics & Gynecology; PCP Family Medicine; Visit Provider Obstetrics & Gynecology
PROC: 10D00Z1 Extraction of Products of Conception, Low, Open Approach (ICD-10-PCS; CPT 59514; principal; 2024-06-24 12:30)
DX: O32.1XX0 Maternal care for breech presentation, not applicable or unspecified (principal); O99.02 Anemia complicating childbirth; D64.9 Anemia, unspecified; Z3A.39 39 weeks gestation of pregnancy; Z37.0 Single live birth
CPT/HCPCS: 36415; 51702; 59409; 80503; 85025; 85027; 85460; 86850; 86870; 86900; 90384; 96374; J1885; J2274; J2371; J2405; J2765; J3010; J3490; J7030; J7121; J9999